=== PATIENT | female | born 1985 | race African-American/Black ===

== ENCOUNTER 2016-11-07 21:30 | Emergency (ER) | payer OTHER ==
[2016-11-07] MEDS ORDERED: TYLENOL WITH C1 EACH PO (21:46)
[2016-11-07] MEDS ORDERED: ZOFRAN4 M2 PO (21:47)
[2016-11-07] MEDS ORDERED: CLEOCIN HCL300 M1 PO (21:47)
== END 2016-11-07 22:24 ==
LOC: EDMED 21:30
DX: K04.7 Periapical abscess without sinus (principal)